=== PATIENT | female | born 1990 | race Two or more races ===

== ENCOUNTER 2024-01-19 23:55 | Inpatient (IN) | payer MEDICAID ==
[~2024-01-19 23:55] MED LIST: Bupivacaine 0.25% 10 ML SDV ONE
[2024-01-20] MEDS ORDERED: Lidocaine 1% 50 ML MDV INJECT PRN (00:03)
[2024-01-20] MEDS ORDERED: Sodium Chloride 0.9% 10 ML Syringe FLUSH PRN (00:03)
[2024-01-20] MEDS ORDERED: Ondansetron 4 MG/2 ML SDV IVPUSH PRN (00:03)
[2024-01-20 00:14] LABS: BASOPHILS PERCENT AUTO 0.3 % (0.0-1.0); EOSINOPHILS ABSOLUTE AUTO 0.1 K/mm3 (0.0-0.4); EOSINOPHILS PERCENT AUTO 1.1 % (0.0-6.0); HEMATOCRIT 33.6 % (37.0-47.0); HEMOGLOBIN 10.9 gm/dl (12.0-16.0); IMMATURE GRAN ABSOLUTE AUTO 0.07 K/mm3 (0.00-0.05); IMMATURE GRAN PERCENT AUTO 0.8 % (0.0-0.4); LYMPHOCYTES ABSOLUTE AUTO 2.4 K/mm3 (1.0-4.8); LYMPHOCYTES PERCENT AUTO 25.8 % (24.0-44.0); MEAN CORPUSCULAR HEMOGLOBIN 28.2 pg (28.0-32.0); MEAN CORPUSCULAR HGB CONC 32.4 g/dl (32.0-36.0); MEAN PLATELET VOLUME 9.9 fl (9.4-12.3); MONOCYTES ABSOLUTE AUTO 0.8 K/mm3 (0.0-0.8); MONOCYTES PERCENT AUTO 9.1 % (0.0-8.0); NEUTROPHILS ABSOLUTE AUTO 5.8 K/mm3 (1.8-7.7); NEUTROPHILS PERCENT AUTO 62.9 % (41.0-71.0); PLATELET COUNT,PLT 208 K/mm3 (150-400); RED BLOOD CELL COUNT 3.86 M/mm3 (4.10-5.30); WHITE BLOOD CELL COUNT,WBC 9.25 K/mm3 (3.9-11.3)
[2024-01-20] MEDS: Penicillin G Potassium 5 MILLUNITS in Sodium Chloride 0.9% 100 ML IV ONE (00:39)
[2024-01-20] MEDS ORDERED: ePHEDrine 50 MG/ML SDV IVPUSH PRN (00:46)
[2024-01-20] MEDS ORDERED: diphenhydrAMINE 50 MG/ML SDV IVPUSH PRN (00:46)
[2024-01-20] MEDS: Bupivacaine/fentaNYL/NS 100 ML Bag EPIDUR PRN (01:02)
[2024-01-20] MEDS: fentaNYL 100 MCG/2 ML SDV EPIDUR PRN (01:02)
[2024-01-20] MEDS: Lactated Ringers 1,000 ML IV SCH (01:30)
[2024-01-20] MEDS: Penicillin G Potassium 2.5 MILLUNITS in Sodium Chloride 0.9% 100 ML IV SCH (04:25)
[2024-01-20] MEDS: Oxytocin/0.9 % Sodium Chloride 30 UNIT/500 ML BAG IV SCH (04:58)
[2024-01-20] MEDS ORDERED: Sodium Chloride 0.9% 10 ML Syringe FLUSH SCH (09:00)
[2024-01-20] MEDS: Ibuprofen 800 MG Tab PO SCH (09:20)
[2024-01-20] MEDS: Benzocaine/Menthol 20%-0.5% Spray 78 GM Cannister TOP PRN (09:21)
[2024-01-20] MEDS: Witch Hazel Medicated Pads 40/Jar TOP PRN (09:21)
[2024-01-20] MEDS: Acetaminophen 325 MG Tab PO PRN (18:39)
== END 2024-01-21 14:15 | disposition home or self-care (01) | DRG 807 ==
LOC: JD.OBCHECK 23:55 → JD.OB 23:55 → JD.OBCHECK 01-20 00:02 → JD.OB 01-20 00:03 → OBSVTOIN 01-20 04:57 → JD.OB 01-20 04:58
PROVIDERS: ADMIT Obstetrics & Gynecology; ATTEND Obstetrics & Gynecology
PROC: 10E0XZZ Delivery of Products of Conception, External Approach (ICD-10-PCS; principal; 2024-01-20)
PROC: 3E0R3BZ Introduction of Anesthetic Agent into Spinal Canal, Percutaneous Approach (ICD-10-PCS; 2024-01-20)
PROC: 00HU33Z Insertion of Infusion Device into Spinal Canal, Percutaneous Approach (ICD-10-PCS; 2024-01-20)
DX: O99.824 Streptococcus B carrier state complicating childbirth (principal); Z37.0 Single live birth; Z3A.37 37 weeks gestation of pregnancy; Z28.39 Other underimmunization status; Z90.49 Acquired absence of other specified parts of digestive tract; Z87.891 Personal history of nicotine dependence
CPT/HCPCS: 01967; 36415; 51702; 59025; 59409; 85025; 86592; A9270-GY; J0665; J2540; J3010; J3490; J7120; J7999